=== PATIENT | female | born 1990 | race Hispanic/Latino ===

== ENCOUNTER 2019-03-11 20:07 | Emergency (ER) | payer OTHER ==
[~2019-03-11] VITALS: Ht 154.9 cm; Wt 72.6 kg
--- OUTSIDE RECORDS SUMMARY | 2019-03-11 20:09 | XMS REPORT | Continuity of Care Document ---
Author Author [facility] Address Unknown Phone Unavailable Care Team Providers Care Night Filler Name Role Phone [address] Information [employer] Unavailable Unavailable Problems Problem Status Onset Date Classification Date Reported Comments Source BLOATING R14.0, K59.00 Active 01/29/2016 [facility] BLOATING Active 01/29/2016 [facility] ABDOMINAL DISTENSION (GASEOUS) Active [facility] CONSTIPATION, UNSPECIFIED Active [facility] Medications No Data Provided for This Section Allergies, Adverse Reactions, Alerts No Known Medication Allergies Immunizations No Data Provided for This Section Results No Data Provided for This Section Pathology Reports No Data Provided for This Section Diagnostic Reports Report Value Date Source Abdomen complete US Patient Name: CEDRIC RUTH : 1990; Age: 25 years y/o Female MR: [id number] Study: Abdomen complete US 02/15/2016 10:48 AM CDT Ordering Physician: Alicia Mattson MD Clinical Indication: R14.0 Abdominal distension (gaseous); Comparison: None. TECHNIQUE: Grayscale and limited color sonographic evaluation of the abdomen was performed with standard technique. FINDINGS: LIVER: The visualized liver shows normal contour, size, and morphology with normal parenchymal echo texture. BILE DUCTS: The intrahepatic duct is not dilated. The common bile duct measuring 4.0 mm. GALLBLADDER: There are no gallstones, gallbladder sludge, pericholecystic fluid or wall thickening. PANCREAS: The pancreas is not well visualized.. SPLEEN: The spleen is unremarkable and measures 9.9 cm x 4.2 cm x 5.8 cm. KIDNEY: The right kidney measures 8.1 cm x 3.4 cm x 4.3 cm. The left kidney measures 11.0 cm x 5.8 cm x 5.5 cm. There is normal renal contour and morphology, with normal parenchymal echotexture. There is no hydronephrosis. AORTA AND INFERIOR VENA CAVA: Visualized portions appear unremarkable. ASCITES: There is no right abdominal ascites. IMPRESSION: 1. No definite gallstones. SL: [id number] 02/15/2016 [facility] Consultation Notes No Data Provided for This Section Discharge Summaries No Data Provided for This Section History and Physicals No Data Provided for This Section Vital Signs No Data Provided for This Section Encounters Location Location Details Encounter Type Encounter Number Reason For Visit Attending Provider ADM Date DC Date Status Source [facility] Outpatient [id number] Alicia Twila 02/15/2016 02/16/2016 [facility] Procedures No Data Provided for This Section Assessment and Plan No Data Provided for This Section Plan of Care No Data Provided for This Section Social History Social History Date Source No data available for this section 02/16/2016 [facility] Family History No Data Provided for This Section Advance Directives No Data Provided for This Section Functional Status No Data Provided for This Section
--- OUTSIDE RECORDS SUMMARY | 2019-03-11 20:09 | XMS REPORT | Summary of Care ---
Author Author [facility] Organization [facility] Address Unknown Phone Unavailable Encounter HQ Encntr_alias(FIN) [id number] Date(s): 02/15/16 - 02/15/16 [facility] [address] [place] [address]- [phone] Discharge Disposition: Home or Self Care Attending Physician: Alicia Mattson MD Admitting Physician: Alicia Mattson MD Referring Physician: Alicia Mattson MD Vital Signs No data available for this section Problem List No data available for this section Allergies, Adverse Reactions, Alerts Substance Reaction Severity Status NKDA Active Medications No data available for this section Results No data available for this section Immunizations No data available for this section Procedures No data available for this section Social History No data available for this section Assessment and Plan No data available for this section
--- OUTSIDE RECORDS SUMMARY | 2019-03-11 20:10 | XMS REPORT ---
Author [facility] Address Unknown Phone Unavailable Care Team Providers Care Real Estate Loan Officer Name Role Phone Unavailable Unavailable Payers Payer Name Policy Type Policy Number Effective Date Expiration Date Problems This patient has no known problems. Allergies, Adverse Reactions, Alerts Allergy Name Allergy Type Status Severity Reaction(s) Onset Date Inactive Date Treating Clinician Comments No Known Allergies DA Active U 2018-07-25 00:00:00 No Known Allergies DA Active U 2017-02-12 00:00:00 Medications This patient has no known medications. Results Test Description Test Time Test Comments Text Results Atomic Results Result Comments URINALYSIS COMPLETE 2019-03-09 20:16:00 UA COLOR (test code=COLU) RED YELLOW UA APPEARANCE (test code=APPU) CLOUDY CLEAR UA GLUCOSE DIPSTICK (test code=DGLUU) norm mg/dL NEGATIVE UA BILIRUBIN DIPSTICK (test code=BILU) NEGATIVE mg/dL NEGATIVE UA KETONE DIPSTICK (test code=KETU) neg mg/dL NEGATIVE UA SPECIFIC GRAVITY (test code=SGU) 1.020 1.001-1.035 UA BLOOD DIPSTICK (test code=PAPO) 250 (4+) Raman/uL NEGATIVE UA PH DIPSTICK (test code=ROXANA) 5.0 5.0-8.0 UA PROTEIN DIPSTICK (test code=PROU) 100 (2+) mg/dL Neg-15 UA UROBILINIOGEN DIPSTICK (test code=URO) 1 mg/dL 0.0-0.2 UA NITRITE DIPSTICK (test code=JENELLE) NEGATIVE NEGATIVE UA LEUKOCYTE ESTERASE DIPSTICK (test code=LEUU) 100 Elizabeth/uL (1+) uL NEGATIVE UA WBC (test code=WBCU) 11-20 per HPF 0-5 UA RBC (test code=RBCU) TNTC per HPF 0-5 UA EPITHELIAL CELLS (test code=EPIU) Few (2-5/hpf) per HPF Few UA BACTERIA (test code=BACU) FEW per HPF NONE Urine Source? Clean CatchUR HCG [id number] 20:16:00* Test Item Value Reference Range Comments UR HCG QUAL (test code=HCGQLU) NEGATIVE This HCGQL test is NOT applicable for MALE patients.Check with nurse about probable order error.If Tumor Marker Test needed, nurse should order test "HCGTU"(Test #[id number]) Urine Source? Clean CatchMONO [id number] 22:47:00* Test Item Value Reference Range Comments MONO SCREEN (test code=MONO) NEGATIVE NEGATIVE - XR CHEST 1 [id number] 22:36:00 FAX: Margi Hendricks MD [place]: B St: REG FAX: Namita Miller Name: CEDRIC RUTH [facility] : 1990 Age/S: 28/F [address] Unit #: [id number] Loc: [place], [place] [address] Phys: Namita Miller NP Acct: [id number] Dis Date: Status: REG ER PHONE #: [phone] Exam Date: 02/09/20192231 FAX #: [phone] Reason: COUGH EXAMS: CPT CODE: [id number] XR CHEST 1 V [id number] REASON FOR EXAM: COUGH Exam Order Date: 02/09/2019 10:06 PM Ordering Ruben: Namita Miller NP PROCEDURE: - XR CHEST 1 V COMPARISON: 2 view chest x-ray February 08, 2019 FINDINGS: The lungs are clear. There is no pleural effusion or pneumothorax. Pulmonary vascularity is within normal limits. Cardiomediastinal silhouette is normal in size for technique. The mediastinal contours are within normal limits. Musculoskeletal structures are within normal limits. The visualized upper abdomen is within normal limits. IMPRESSION: No acute c ardiopulmonary process. Electronically Signed by Curt Springer MD on 0 02/09/2019 at 2236 Reported and signed by: Curt Springer MD CC: Margi Zavala MD; Namita Miller NP Techn ologist: OSMEL HAM Trnidrd Date/Herrera e/By: 02/09/2019 (2235) : By: [email or web address] Orig Print D/T: S: 02/09/2019 (4387) PAGE 1 Signed Report - XR CHEST 2 [id number] 08:34:00 Name: CEDRIC RUTH [facility] : 1990 Age/S:28 /F [address] [facility] Unit#:[id number] Loc: [place] [address] Phys: Derek Wyatt MD Dis Date: PHONE #: [phone] Status: REG ER FAX #: [phone] Exam Date: 02/08/2019 Reason: cough EXAMS: CPT CODE: [id number] XR CHEST 2 V [id number] HISTORY: Cough. COMPARISON: May 12, 2018. AP and lateral view of the chest: No acute infiltrates, effusion or congestion. Cardiac and the mediastinal silhouette are normal. IMPRESSION: No acute infiltrates, effusion or congestion. at 0834 Reported and signed by: Luca Peters M.D. CC: Derek Wyatt MD Technologist: Lizbet Quick RT(R)(CT) Trnscrpt Data: 02/08/2019 (0834) [email or web address] Orig Print D/T: S: 02/08/2019 (0838) PAGE 1 Signed Report
[2019-03-11] MEDS ORDERED: LIDOCAINE 5% PATCH TP ONE (20:30)
[2019-03-11] MEDS ORDERED: KETOROLAC TROMETHAMINE 60 MG/2 ML VIAL IM ONE (20:30)
[2019-03-11] MEDS ORDERED: DEXAMETHASONE SOD PHOS 10 MG/1 ML VIAL IM ONE (20:30)
[2019-03-11] MEDS ORDERED: CYCLOBENZAPRINE HCL 10 MG TAB PO ONE (20:30)
[2019-03-11] MEDS ORDERED: HYDROCODONE/APAP 10MG-325MG TAB PO ONE (20:30)
[2019-03-11 21:27] VITALS: BP 123/76
== END 2019-03-11 21:32 | disposition home or self-care (01) ==
LOC: ER 20:07
DX: S39.012A Strain of muscle, fascia and tendon of lower back, initial encounter (principal); X50.0XXA Overexertion from strenuous movement or load, initial encounter; Y93.89 Activity, other specified; Y92.69 Other specified industrial and construction area as the place of occurrence of the external cause; Y99.0 Civilian activity done for income or pay
CPT/HCPCS: 96372; 99283; J1100; J1885

== ENCOUNTER 2019-06-16 20:37 | Emergency (ER) | payer OTHER ==
[~2019-06-16] VITALS: Ht 154.9 cm; Wt 74.8 kg
[2019-06-16] MEDS ORDERED: IBUPROFEN 600 MG TAB PO ONE (21:16)
[2019-06-16] MEDS ORDERED: IBUPROFEN 600 MG TAB ONE (21:27)
[2019-06-16] MEDS ORDERED: ACETAMINOPHEN 325 MG TAB PO ONE (21:30)
[2019-06-16 21:32] LABS: STREPTOCOCCUS GRP A ANTIGEN NEGATIVE (NEGATIVE)
[2019-06-16 21:46] LABS: INFLUENZAE A&B ANTIGEN (RAPID) NEGATIVE (NEGATIVE)
--- NOTE | 2019-06-16 22:21 | Diagnostic Imaging Report ---
EXAMINATION: CHEST 2 VIEWS INDICATION: Cough. COMPARISON: None FINDINGS: TUBES and LINES: None. LUNGS: Low lung volumes. There is no evidence of pneumonia or pulmonary edema. PLEURA: No pleural effusion or pneumothorax. HEART AND MEDIASTINUM: The cardiomediastinal silhouette is unremarkable. BONES AND SOFT TISSUES: No acute osseous abnormality. UPPER ABDOMEN: No free air under the diaphragm. IMPRESSION: No acute radiographic abnormality. Signed by: Dr. Amalia Castro MD on 06/16/2019 10:18 PM
== END 2019-06-16 23:32 | disposition home or self-care (01) ==
LOC: ER 20:37
DX: J06.9 Acute upper respiratory infection, unspecified (principal); R50.9 Fever, unspecified
CPT/HCPCS: 71046; 83518; 87070; 87400; 99283

== ENCOUNTER 2020-06-11 17:00 | Emergency (ER) | payer OTHER ==
[~2020-06-11] VITALS: Ht 160 cm; Wt 74.8 kg
--- OUTSIDE RECORDS SUMMARY | 2020-06-11 18:28 | XMS REPORT | Continuity of Care Document ---
Author Author [facility] t Organization [facility] Address [address] [place] [address] Phone Unavailable Care Team Providers Care Biopharmaceutical Rep Name Role Phone KENDY RODRIGUEZ PCP SIOBHAN SAMAYOA, LOUISA Attphys Unavailable PHIL KNIGHT Attphys Unavailable Leia Mattson Attphys Leia Mattson Admphys Payers Payer Name Policy Type Policy Number Effective Date Expiration Date Lulu mcgrath [facility] [id number] 2017 00:00: 00 [facility] Cigna o [id number] 2017 00:00:00 [facility] Problems Condition Name Condition Details Condition Category Status Onset Date Resolution Date Last Treatment Date Treating Clinician Comments Source BLOATING R14.0, K59.00 BLOA SANAM R14.0, K59.00 Active 01/29/2016 [facility] Diagnosis Active 2016-01-29 00:00:00 2016[facility]02[facility]15 [facility]ING Active 01/29/2016 [facility] Diagnosis Active 2016-01-29 00:00:00 2016-02-07 12:01:00 [facility] Abdominal pain Problem Active C [facility] Nausea Problem Active [facility] Urinary tract infection Problem Active [facility] ABDOMINAL DISTENSION (GASEOUS) ABDOMINAL DISTENSION (GASEOUS) Active [facility] Diagnosis Active 2015 10:52:00 [facility] CONSTIPATION, UNSPECIFIED CONS TIPATION, UNSPECIFIED Active [facility] Diagnosis Active 2016-02-15 10:52:0 0 [facility] Allergies, Adverse Reactions, Alerts Allergy Name Allergy Type Status Severity Reaction(s) Onset Date Inacti ve Date Treating Clinician Comments Source No Known Allergies DA Active U 2018-07-25 00:00:00 [facility] No Known Allergies DA Active U 2017-02-12 00:00:00 [facility] Social History Social Habit Start Date Stop Date Quantity Comments Source Social History 2016-02-16 04:59:00 2016-02-16 04:59:00 [facility] Sex Assigned At 1990 00:00:00 1990 00:00:00 Female [facility] Medications This patient has no known medications. Vital Signs Vital Name Observation Time Observation Value Comments Source Body Temperature 2020-02-06 19:23:00 98.2 [degF] [facility] Weight 2020-02-06 17:24:00 165 [lb_av] [facility] BMI (Body Mass Index) 2020-02-06 17:24:00 31.2 kg/m2 [facility] Procedures Procedure Date / Time Performed Performing Clinician Martínez robison Computed tomography of abdomen and pelvis with contrast 00:00:00 [facility] X-ray of chest, two views 2019-06-16 00:00:00 PHIL MENJIVAR [facility] Plan of Care Planned Activity Planned Date Details Comments Source Instructions Abdominal Pain - Adult [facility] Instructions Hypokalemia [facility] Instructions Urinary Tract Infection - Women [facility] Encounters Start Date/Time End Date/Time Encounter Type Admission Type [facility] Care Department Encounter ID Source 2020-02-06 17:22:00 2020-02-06 19:35:00 Departed Emergency Room 1 LOUISA MCCANN MD [facility] [id number] [facility] 2019-06-16 19:37:00 2019-06-16 22:32:00 Departed Emergency Room 1 PHIL KNIGHT [facility] [id number] [facility] 2019-03-11 20:07:00 2019-03-11 21:32:00 Departed Emergency Room [facility] [id number] [facility] 2016-02-15 10:44:00 2016-02-15 23:59:00 Outpatient Alicia Mattson [facility] [id number] Results Test Description Test Time Test Comments Results Result Comments Source CT ABDOMEN/PELVIS W 2020-02-06 19:00:00 [facility] [address] [place] [address] Patient Name: CEDRIC RUTH MR #: [id number] : 1990 Age/Sex: 29/F Req #: [id number] Adm Physician: Ordered by: LOUISA MCCANN MD, MD Report #: [id number] Location: ER Room/Bed: Procedure: [id number] CT/CT ABDOMEN/PELVIS W Exam Date: 02/06/20 Exam Time: 1815 REPORT STATUS: Signed EXAM: CT Abdomen and Pelvis WITH contrast INDICATION: Right lower quadrant pain. Abdominal pain. COMPARISON: None. TECHNIQUE: Abdomen and pelvis were scanned utilizing a multidetector helical scanner from the lung base to the pubic symphysis after administration of IV contrast. Coronal and sagittal reformations were obtained. Routine protocol was performed. Scan was performed when during portal venous phase. IV CONTRAST: 100 mL of Isovue 370 ORAL CONTRAST: None COMPLICATIONS: None RADIATION DOSE: Total DLP: 505 mGy*cm Estimated effective dose: (DLP x 0.015 x size factor) mSv CTDIvol has been reviewed. It is below the limits set by the Radiation Protocol Committee (RPC). Dose modulation, iterative reconstruction, and/or weight based adjustment of the mA/kV was utilized to reduce the radiation dose to as low as reasonably achievable. FINDINGS: LINES and TUBES: None. LOWER THORAX: Unremarkable HEPATOBILIARY: No focal hepatic lesions. No biliary ductal dilation. GALLBLADDER: No radio-opaque stones or sludge. No wall thickening. SPLEEN: No splenomegaly. PANCREAS: No focal masses or ductal dilatation. ADRENALS: No adrenal nodules KIDNEYS/URETERS: Kidneys enhance symmetrically. No hydronephrosis. No cystic or solid mass lesions. No stones. GI TRACT: No abnormal distention, wall thickening, or evidence of bowel obstruction. Appendix is normal. The terminal ileum and appendix are located in the right mid central abdomen. This is best seen on coronal reformatted image 36 through 42. This is also seen on axial image 37 through 40. Minimal nonspecific inflammatory change in the adjacent right mid abdomen with several small lymph nodes. Findings could be due to enteritis. PELVIC ORGANS/BLADDER: Unremarkable. LYMPH NODES: No lymphadenopathy. VESSELS: Unremarkable. PERITONEUM / RETROPERITONEUM: No free air or fluid. BONES: Unremarkable. SOFT TISSUES: Unremarkable. IMPRESSION: Appendix is normal. The terminal ileum and appendix are located in the right mid central abdomen. This is best seen on coronal reformatted image 36 through 42. This is also seen on axial image 37 through 40. Minimal nonspecific inflammatory change in the adjacent right mid abdomen with several small lymph nodes. Findings could be due to enteritis. Signed by: Dr. Timothy Sampson M.D. on 02/06/2020 7:07 PM Dictated By: TIMOTHY SAMPSON MD, MD 06 Transcribed By: ROMAIN on 02/06/201906 COPY TO: LOUISA MCCANN Urine color determination 2020-02-06 17:34:00 Test Item Urine Color (test code = 5778-6) YELLOW YELLOW [facility] [id number] 17:34:00* Test Item Value Reference Range Interpretation Comments Urine Clarity (test code = 35809-4) SL CLOUDY CLEAR [facility] gravity of Urine by Test strip 2020-02-06 17:34:00* Test Item Value Reference Range Interpretation Comments Urine Specific [place] (test code = 5811-5) 1.025 1.010-1.02 5 [facility] pH measurement by automated test zpwzq8404-38-60 17:34:00* Test Item Value Reference Range Interpretation Comments Urine pH (test code = 48491-5) 7 5-7 [facility] leukocyte esterase detection by pyhhohow2783-48-60 17:34:00* Test Item Value Reference Range Interpretation Comments Urine Leukocyte Esterase (test code = 5799-2) TRACE NEGATIVE [facility] nitrite qzdfblxhm4328-08-89 17:34:00* Test Item Value Reference Range Interpretation Comments Urine Nitrite (test code = 18666-3) NEGATIVE NEGATIVE [facility] protein measurement by test strip (mass/volume)2020-02-06 17:34:00* Test Item Value Reference Range Interpretation Comments Urine Protein (test code = 5804-0) TRACE NEGATIVE [facility] glucose qsfkbbrqy7387-68-22 17:34:00* Test Item Value Reference Range Interpretation Comments Urine Glucose (UA) (test code = 2349-9) NEGATIVE NEGATIVE [facility] ketones detection by automated test ughhv6958-31-13 17:34:00* Test Item Value Reference Range Interpretation Comments Urine Ketones (test code = 45240-9) 1+ NEGATIVE [facility] urobilinogen measurement by test strip (mass/volume)2020-02-06 17:34:00* Test Item Value Reference Range Interpretation Comments Urine Urobilinogen (test code = 88910-2) 2 0.2-1 [facility] total bilirubin measurement (mass/volume)2020-02-06 17:34:00* Test Item Value Reference Range Interpretation Comments Urine Bilirubin (test code = 1978-6) SMALL NEGATIVE [facility] erythrocytes dgvftncrv0811-41-81 17:34:00* Test Item Value Reference Range Interpretation Comments Urine Blood (test code = 15529-0) SMALL NEGATIVE [facility] CenterAutomated urine sediment leukocyte count by microscopy (number/high power field)2020-02-06 17:34:00* Test Item Value Reference Range Interpretation Comments Urine WBC (test code = 5821-4) 0-5 0-5 [facility] CenterErythrocytes detection in urine sediment by light mtpcgsohar7889-11-73 17:34:00* Test Item Value Reference Range Interpretation Comments Urine RBC (test code = 84350-4) 0-5 0-5 [facility] CenterBacteria detection in urine sediment by light jknmkncyoi5355-00-87 17:34:00* Test Item Value Reference Range Interpretation Comments Urine Bacteria (test code = 09514-3) MODERATE NONE [facility] CenterEpithelial cells detection in urine sediment by light rplqvtbyjm7409-16-88 17:34:00* Test Item Value Reference Range Interpretation Comments Urine Epithelial Cells (test code = 35105-6) MANY NONE [facility] CenterUrine human chorionic gonadotropin (hCG) dhhqpmeib4770-61-96 17:34:00* Test Item Value Reference Range Interpretation Comments Urine Test (test code = 2106-3) NEGATIVE NEGATIVE [facility] CenterBlood leukocytes automated count (number/volume)2020-02-06 17:32:00* Test Item Value Reference Range Interpretation Comments White Blood Count (test code = 6690-2) 9.52 4.8-10.8 [facility] CenterBlood erythrocytes automated count (number/volume)2020-02-06 17:32:00* Test Item Value Reference Range Interpretation Comments Red Blood Count (test code = 789-8) 4.69 3.6-5.1 [facility] CenterBlood hemoglobin measurement (moles/volume)2020-02-06 17:32:00* Test Item Value Reference Range Interpretation Comments Hemoglobin (test code = 62059-5) 10.2 12.0-16.0 [facility] CenterAutomated blood hematocrit (volume fraction)2020-02-06 17:32:00* Test Item Value Reference Range Interpretation Comments Hematocrit (test code = 4544-3) 34.0 34.2-44.1 [facility] CenterAutomated erythrocyte mean corpuscular ffdddo1045-87-78 17:32:00* Test Item Value Reference Range Interpretation Comments Mean Corpuscular Volume (test code = 787-2) 72.5 81-99 [facility] CenterAutomated erythrocyte mean corpuscular hemoglobin (mass per erythrocyte)2020-02-06 17:32:00* Test Item Value Reference Range Interpretation Comments Mean Corpuscular Hemoglobin (test code = 785-6) 21.7 28-32 [facility] CenterAutomated erythrocyte mean corpuscular hemoglobin concentration measurement (mass/volume)2020-02-06 17:32:00* Test Item Value Reference Range Interpretation Comments Mean Corpuscular Hemoglobin Concent (test code = 786-4) 30.0 31-35 [facility] CenterRDW PeoSb-Aoj2696-00-21 17:32:00* Test Item Value Reference Range Interpretation Comments Red Cell Distribution Width (test code = 56030-9) 16.9 11.7 -14.4 [facility] CenterAutomated blood platelet count (count/volume)2020-02-06 17:32:00* Test Item Value Reference Range Interpretation Comments Platelet Count (test code = 777-3) 468 140-360 [facility] CenterAutomated blood segmented neutrophil count as percentage of total lfgahdfpzq7782-42-33 17:32:00* Test Item Value Reference Range Interpretation Comments Neutrophils (%) (Auto) (test code = 44391-3) 67.6 38.7-80.0 [facility] CenterAutomated blood lymphocyte count as percentage ot total ptypqdsvlr1700-92-54 17:32:00* Test Item Value Reference Range Interpretation Comments Lymphocytes (%) (Auto) (test code = 736-9) 25.5 18.0-39.1 [facility] CenterAutomated blood monocyte count as percentage of total szfgnfdtqu1269-04-75 17:32:00* Test Item Value Reference Range Interpretation Comments Monocytes (%) (Auto) (test code = 5905-5) 4.6 4.4-11.3 [facility] CenterAutomated blood eosinophil count as percentage of total ubzqdownxl0266-26-25 17:32:00* Test Item Value Reference Range Interpretation Comments Eosinophils (%) (Auto) (test code = 713-8) 1.3 0.0-6.0 [facility] CenterAutomated blood basophil count as percentage of total qufsdnxpex0478-43-97 17:32:00* Test Item Value Reference Range Interpretation Comments Basophils (%) (Auto) (test code = 706-2) 0.5 0.0-1.0 [facility] CenterFluoroscopic procedure less than one hour txyfwrlw7490-35-05 17:32:00* Test Item Value Reference Range Interpretation Comments IM GRANULOCYTES % (test code = IM GRANULOCYTES %) 0.5 0.0- 1.0 [facility] CenterAutomated blood neutrophil count 2020-02-06 17:32:00* Test Item Value Reference Range Interpretation Comments Neutrophils # (Auto) (test code = 751-8) 6.4 2.1-6.9 [facility] CenterBlood lymphocytes count (number/volume) 2020-02-06 17:32:00* Test Item Value Reference Range Interpretation Comments Lymphocytes # (Auto) (test code = 97081-0) 2.4 1.0-3.2 [facility] CenterBlood monocytes automated count (number/volume)2020-02-06 17:32:00* Test Item Value Reference Range Interpretation Comments Monocytes # (Auto) (test code = 742-7) 0.4 0.2-0.8 [facility] CenterAutomated blood eosinophil count 2020-02-06 17:32:00* Test Item Value Reference Range Interpretation Comments Eosinophils # (Auto) (test code = 711-2) 0.1 0.0-0.4 [facility] CenterAutomated blood basophil count (count/volume)2020-02-06 17:32:00* Test Item Value Reference Range Interpretation Comments Basophils # (Auto) (test code = 704-7) 0.1 0.0-0.1 [facility] CenterFluoroscopic procedure less than one hour shvtvezm2820-37-76 17:32:00* Test Item Value Reference Range Interpretation Comments Absolute Immature Granulocyte (auto (edward t code = Absolute Immature Granulocyte (auto) 0.05 0-0.1 [facility]um or plasma sodium measurement (moles/volume)2020-02-06 17:32:00* Test Item Value Reference Range Interpretation Comments Sodium Level (test code = 2951-2) 140 136-145 [facility]ervilleerum or plasma potassium measurement (moles/volume)2020-02-06 17:32:00* Test Item Value Reference Range Interpretation Comments Potassium Level (test code = 2823-3) 3.4 3.5-5.1 [facility]ervilleerum or plasma chloride measurement (moles/volume)2020-02-06 17:32:00* Test Item Value Reference Range Interpretation Comments Chloride Level (test code = 2075-0) 106 98-107 [facility]ervilleerum or plasma carbon dioxide, total measurement (moles/volume)2020-02-06 17:32:00* Test Item Value Reference Range Interpretation Comments Carbon Dioxide Level (test code = 2028-9) 24 22-29 [facility]ervilleerum or plasma anion hxx0044-85-13 17:32:00* Test Item Value Reference Range Interpretation Comments Anion Gap (test code = 52504-4) 13.4 8-16 [facility]ervilleerum or plasma urea nitrogen measurement (mass/volume)2020-02-06 17:32:00* Test Item Value Reference Range Interpretation Comments Blood Urea Nitrogen (test code = 3094-0) 7 7-26 [facility]ervilleerum or plasma creatinine measurement (mass/volume)2020-02-06 17:32:00* Test Item Value Reference Range Interpretation Comments Creatinine (test code = 2160-0) 0.68 0.57-1.11 [facility]ervilleerum or plasma urea nitrogen/creatinine mass fnrpl5635-74-76 17:32:00* Test Item Value Reference Range Interpretation Comments BUN/Creatinine Ratio (test code = 3097-3) 10 6-25 [facility] CenterEstimated glomerular filtration rate (GFR) attpcjuwaqslf1101-80-42 17:32:00* Test Item Value Reference Range Interpretation Comments Estimat Glomerular Filtration Rate (test code = 933976938) > 60 >60 Ranges were taken from the National Kidney Disease Education Program and the [facility] Kidney Foundation literature.Reference ranges:60 or greater: Egjizr52-26 ( for 3 consecutive months): Chronic kidney disease 15 or less: Kidney failureUnited Memorial Medical CenterGlucose zwkizlacnnf2641-87-80 17:32:00* Test Item Value Reference Range Interpretation Comments Glucose Level (test code = JZT2530) 88 74-118 [facility]ervilleerum or plasma calcium measurement (mass/volume)2020-02-06 17:32:00* Test Item Value Reference Range Interpretation Comments Calcium Level (test code = 10526-0) 9.2 8.4-10.2 [facility]ervilleerum or plasma total bilirubin measurement (mass/volume)2020-02-06 17:32:00* Test Item Value Reference Range Interpretation Comments Total Bilirubin (test code = 1975-2) 0.5 0.2-1.2 [facility] CenterFluoroscopic procedure less than one hour qrxakqse3616-27-17 17:32:00* Test Item Value Reference Range Interpretation Comments Aspartate Amino Transf (AST/SGOT) (test code = Aspartate Amino Transf (AST/SGOT)) 15 5-34 [facility]ervilleerum or plasma alanine aminotransferase measurement (enzymatic activity/volume)2020-02-06 17:32:00* Test Item Value Reference Range Interpretation Comments Alanine Aminotransferase (ALT/SGPT) (test code = 1742-6) 12 0-55 [facility]ervilleerum or plasma protein measurement (mass/volume)2020-02-06 17:32:00* Test Item Value Reference Range Interpretation Comments Total Protein (test code = 2885-2) 7.8 6.5-8.1 [facility]ervilleerum or plasma albumin measurement (mass/volume)2020-02-06 17:32:00* Test Item Value Reference Range Interpretation Comments Albumin (test code = 1751-7) 4.3 3.5-5.0 [facility] CenterPlasma globulin measurement (mass/volume) 2020-02-06 17:32:00* Test Item Value Reference Range Interpretation Comments Globulin (test code = 27501-6) 3.5 2.3-3.5 [facility]ervilleerum or plasma albumin/globulin mass uayhi0585-42-17 17:32:00* Test Item Value Reference Range Interpretation Comments Albumin/Globulin Ratio (test code = 1759-0) 1.2 0.8-2.0 [facility]ervilleerum or plasma alkaline phosphatase measurement (enzymatic activity/volume)2020-02-06 17:32:00* Test Item Value Reference Range Interpretation Comments Alkaline Phosphatase (test code = 6768-6) 73 40-150 [facility]ervilleerum or plasma creatine kinase measurement (enzymatic activity/volume)2020-02-06 17:32:00* Test Item Value Reference Range Interpretation Comments Creatine Kinase (test code = 2157-6) 63 29-168 [facility]ervilleerum or plasma creatine kinase MB measurement (mass/volume)2020-02-06 17:32:00* Test Item Value Reference Range Interpretation Comments Creatine Kinase MB (test code = 81876-7) 0.40 0-5.0 [facility] CenterTroponin I measurement by highly sensitive enzyme cersmjgeglo3730-57-39 17:32:00* Test Item Value Reference Range Interpretation Comments Troponin I (test code = 63916-8) 0.014 0-0.300 [facility]erville[facility]um or plasma lipase measurement (enzymatic activity/volume)2020-02-06 17:32:00* Test Item Value Reference Range Interpretation Comments Lipase (test code = 3040-3) 28 8-78 [facility] CenterCHEST 2 KIDLS9081-10-57 22:17:00 [facility] [address] [place] [address] Patient Name: CEDRIC RUTH MR #: [id number] : 1990 Age/Sex: 29/F Req #: [id number] Adm Physician: Ordered by: PHIL MENJIVAR NP Report #: [id number] Location: ER Room/Bed: Procedure: [id number] DX/C HEST 2 VIEWS Exam Date: 06/16/19 Exam Time: 2128 REPORT STATUS: Signed EXAMINATION: CHEST 2 VIEWS INDICATION: Cough. COMPARISON: None FIN DINGS: TUBES and LINES: None. LUNGS: Low lung volumes. There is no evide nce of pneumonia or pulmonary edema. PLEURA: No pleural effusion or pneumo thorax. HEART AND MEDIASTINUM: The cardiomediastinal silhouette is unrema rkable. BONES AND SOFT TISSUES: No acute osseous abnormality. UPP ER ABDOMEN: No free air under the diaphragm. IMPRESSION: No acute ra diographic abnormality. Signed by: Dr. Mercedez Joshi MD on 06/16/2019 10:18 P M Dictated By: MERCEDEZ JOSHI MD 17 Transcribed By: ROMAIN on 06/16/192217 COPY TO: Tiera MENJIVAR [employer] TECHNICIAN Influenza Virus Types A,B Pfekewk1232-52-86 21:46:00* Test Item Value Reference Range Interpretation Comments Influenza Virus Types A,B Antigen (test code = 08536-1) NEGATIVE NEGATIVE [facility] CenterGroup A Streptococcus Jhqfmm2047-03-12 21:32:00* Test Item Value Reference Range Interpretation Comments Group A Streptococcus Screen (test code = 00529-0) NEGATIVE NEG ATIVE [facility] CenterInfluenza virus A and B antigen identification by lrzwzedmvfscvyzjdz2036-28-77 20:14:00* Test Item Value Reference Range Interpretation Comments Influenza Virus Types A,B Antigen (test code = 44293-8) NEGATIVE NEGATIVE [facility] Pflugervilletreptococcus pyogenes antigen detection in rguctx0681-90-51 20:14:00* Test Item Value Reference Range Interpretation Comments Group A Streptococcus Screen (test code = 66603-2) NEGATIVE NEG ATIVE [facility] CenterURINALYSIS TOGSMQET6292-67-41 20:16:00* Test Item Value Reference Range Interpretation Comments UA COLOR (test code = COLU) RED YELLOW A UA APPEARANCE (test code = APPU) CLOUDY CLEAR A UA GLUCOSE DIPSTICK (test code = DGLUU) norm mg/dL NEGATIVE UA BILIRUBIN DIPSTICK (test code = BILU) NEGATIVE mg/dL NEGATIVE UA KETONE DIPSTICK (test code = KETU) neg mg/dL NEGATIVE UA SPECIFIC GRAVITY (test code = SGU) 1.020 1.001-1.035 UA BLOOD DIPSTICK (test code = PAPO) 250 (4+) Raman/uL NEGATIVE A UA PH DIPSTICK (test code = ROXANA) 5.0 5.0-8.0 UA PROTEIN DIPSTICK (test code = PROU) 100 (2+) mg/dL Neg-15 A UA UROBILINIOGEN DIPSTICK (test code = URO) 1 mg/dL 0.0-0.2 A UA NITRITE DIPSTICK (test code = JENELLE) NEGATIVE NEGATIVE UA LEUKOCYTE ESTERASE DIPSTICK (test code = LEUU) 100 Elizabeth/uL (1+) u L NEGATIVE A UA WBC (test code = WBCU) 11-20 per HPF 0-5 A UA RBC (test code = RBCU) TNTC per HPF 0-5 A UA EPITHELIAL CELLS (test code = EPIU) Few (2-5/hpf) per HPF Few UA BACTERIA (test code = BACU) FEW per HPF NONE Urine Source? Clean CatchUR HCG QNGY9288-74-73 20:16:00* Test Item Value Reference Range Interpretation Comments UR HCG QUAL (test code = HCGQLU) NEGATIVE This HCGQL test is NOT applicable for MALE patients.Check with nurse about probable order error.If Tumor Marker Test needed, nurse should order test "HCGTU"(Test #550.38473) Urine Source? Clean CatchMONO PMGWDH5365-77-98 22:47:00* Test Item Value Reference Range Interpretation Comments MONO SCREEN (test code = MONO) NEGATIVE NEGATIVE - XR CHEST 1 [id number] 22:36:00 FAX: Kendy Hendricks MD [place]: St: [facility] FAX: Namita Miller Name: CEDRIC RUTH [facility] : 1990 Age/S: 28/F [address] [facility]: [id number] Loc: [place] [address] Phys: Namita Miller NP Acct: [id number] Dis Date: Status: REG ER PHONE #: [phone] Exam Date: 02/09/20192231 FAX #: [phone] Reason: COUGH EXAMS: CPT CODE: [id number] XR CHEST 1 V [id number] REASON FOR EXAM: COUGH Exam Order Date: 02/09/2019 10:06 PM Ordering MHazel: Namita Miller NP PROCEDURE: - XR CHEST [...] and signed by: Curt Springer MD CC: Kendy Rodriguez MD; Namita Miller NP Techn ologist: OSMEL HAM Trnscrd Date/Herrera e/By: 02/09/2019 (2755) : By: [email or web address] Orig Print D/T: S: 02/09/2019 (3902) PAGE 1 Signed Report - XR CHEST 2 [id number] 08:34:00 Name: CEDRIC RUTH [facility] : 1990 Age/S:28 /F [address] [facility] Unit#:[id number] Loc: [place] [address] Phys: Derek Wyatt MD Dis Date: PHONE #: [phone] Status: REG ER FAX #: [phone] Exam Date: 02/08/2019 Reason: cough EXAMS: CPT CODE: [id number] XR CHEST 2 V 78069 HISTORY: Cough. COMPARISON: May 12, 2018. AP and lateral view of the chest: No acute infiltrates, effusion or congestion. Cardiac and the mediastinal silhouette are normal. IMPRESSION: No acute infiltrates, effusion or congestion. at 0834 Reported and signed by: Luca Peters M.D. CC: Derek Wyatt MD Technologist: Lizbet Quick RT(R)(CT) Trnscrpt Data: 02/08/2019 (0834) [email or web address] Orig Print D/T: S: 02/08/2019 (0809) PAGE 1 Signed Report
--- OUTSIDE RECORDS SUMMARY | 2020-06-11 18:28 | XMS REPORT | Continuity of Care Document ---
Author Author Melania Lazo Wisam CEDRIC Saini Organization [employer] Address Unknown Phone Unavailable Care Team Providers [employer] Att[employer] Name Role Phone CausePlay Information [place] Unavailable Un available Problems Problem Status Onset Date Classification Date Reported Comments Source BLOATING R14.0, K59.00 Active 01/29/2016 [facility] BLOATING Active 01/29/2016 [facility] ABDOMINAL DISTENSION (GASEOUS) Active [facility] CONSTIPATION, UNSPECIFIED Acti ve [facility] Medications No Data Provided for This Section Allergies, Adverse Reactions, Alerts No Known Medication Allergies Immunizations No Data Provided for This Section Results No Data Provided for This Section Pathology Reports No Data Provided for This Section Diagnostic Reports Report Value Date Source Abdomen complete US Patient Na me: CEDRIC RUTH : 1990; Age: 25 years y/o Female MR: [id number] Study: Abdomen complete US 02/15/2016 10:48 AM [...] ascites. IMPRESSION: 1. No definite gallstones. SL: [id number] 02/15/2016 [facility] Consultation Notes No Data Provided for This Section Discharge Summaries No Data Provided for This Section History and Physicals No Data Provided for This Section Vital Signs No Data Provided for This Section Encounters Location Location Details Encounter Type Encounter Number Reason For Visit Attending Provider ADM Date DC Date Status Source [facility] [id number] Alicia Mattson 02/15/2016 02/16/2016 [facility] Procedures No Data Provided for This Section Assessment and Plan No Data Provided for This Section Plan of Care No Data Provided for This Section Social History Social History Date Source No data available for this section 02/16/2016 [facility] Family History No Data Provided for This Section Advance Directives No Data Provided for This Section Functional Status No Data Provided for This Section
--- NOTE | 2020-06-11 18:34 | Emergency Department Note ---
History of Present Illnes History of Present Illness Chief Complaint: General Medicine Complaints History of Present Illness This is a 30 year old female advised by her PCP to come to the nearest ED for evaluation of left breast pain, onset Wednesday, pt states that she was doing a breast self-exam when she felt a lump under her left breast, pt describes the pain as burning and "something wants to come out from my left breast", family hx of cancer . Historian: Patient Onset (how long ago): day(s) (2) Location: LEFT BREAST Quality: LUMP IN BREAST WITH TENDERNESS Radiation: Reports non-radiation Severity: mild Onset quality: sudden Duration (how long): day(s) (2) Timing of current episode: constant Chronicity: new Context: Denies recent illness Relieving factors: none Exacerbating factors: none Associated symptoms: Reports denies other symptoms Past Medical/Family History Physician Review I have reviewed the patient's past medical and family history. Any updates have been documented here. Past Medical History Recent Fever: No Clinical Suspicion of Infectio: No New/Unexplained Change in Ment: No Past Medical History: None Other Medical History: svt Past Surgical History: None Social History Smoking Cessation: Never Smoker Alcohol Use: None Any Illegal Drug Use: No Family History Other family history BREAST CANCER Other Last Tetanus: UTD Review of Systems Review of Systems Constitutional: Reports no symptoms EENTM: Reports no symptoms Cardiovascular: Reports no symptoms Respiratory: Reports no symptoms Gastrointestinal: Reports no symptoms Genitourinary: Reports no symptoms Musculoskeletal: Reports no symptoms Integumentary: Reports no symptoms Neurological: Reports no symptoms Psychological: Reports no symptoms Endocrine: Reports no symptoms Hematological/Lymphatic: Reports no symptoms Physical Exam Related Data Allergies: Coded Allergies: No Known Allergies (Unverified , 06/16/19) Triage Vital Signs Vital Signs Date Time Temp Pulse Resp B/P (MAP) Pulse Ox O2 Delivery O2 Flow Rate FiO2 06/11/20 17:06 Room Air Vital signs reviewed: Yes Physical Exam CONSTITUTIONAL Constitutional: Present well-developed, Present well-nourished HENT HENT: Present normocephalic, Present atraumatic, Present oropharynx clear/moist, Present nose normal HENT L/R: Present left ext ear normal, Present right ext ear normal EYES Eyes: Reports PERRL, Reports conjunctivae normal NECK Neck: Present ROM normal PULMONARY Pulmonary: Present effort normal, Present breath sounds normal CARDIOVASCULAR Cardiovascular: Present regular rhythm, Present heart sounds normal, Present capillary refill normal, Present normal rate GASTROINTESTINAL Abdominal: Present soft, Present nontender, Present bowel sounds normal GENITOURINARY Genitourinary: Present exam deferred SKIN Skin: Present warm, Present dry MUSCULOSKELETAL Musculoskeletal: Present ROM normal NEUROLOGICAL Neurological: Present alert, Present oriented x 3, Present no gross motor or sensory deficits PSYCHOLOGICAL Psychological: Present mood/affect normal, Present judgement normal Exam - additional comments BREAST EXAM PT WITH 2 SMALL PALPABLE LUMPS AT 6 OCLOCK POSITION OF LEFT BREAST, NO ERYTHEMA, NO SIGN OF INFECTION Assessment & Plan Medical Decision Making [facility] PT WITH 2 LUMPS IN LEFT BREAST INSTRUCTED TO FOLLOW UP WITH PCP TO ARRANGE A MAMMOGRAM Assessment & Plan Final Impression: (1) Lump in female breast Depart Disposition: HOME, SELF-CARE Last Vital Signs Date Time Temp Pulse Resp B/P (MAP) Pulse Ox O2 Delivery O2 Flow Rate FiO2 06/11/20 17:06 Room Air BLANCA CORDOVA MD Jun 11, 2020 18:34
[2020-06-11 18:57] VITALS: BP 124/63
== END 2020-06-11 18:59 | disposition home or self-care (01) ==
LOC: ER 18:20
DX: N63.24 Unspecified lump in the left breast, lower inner quadrant (principal); Z80.3 Family history of malignant neoplasm of breast
CPT/HCPCS: 99283

== ENCOUNTER 2020-08-04 12:48 | Emergency (ER) | payer OTHER ==
[~2020-08-04] VITALS: Ht 160 cm; Wt 74.8 kg
[2020-08-04 15:33] VITALS: BP 115/78
== END 2020-08-04 15:33 | disposition home or self-care (01) ==
LOC: ER 13:19
DX: G51.0 Bell's palsy (principal)
CPT/HCPCS: 70450; 99283

== ENCOUNTER 2021-01-28 11:56 | Emergency (ER) | payer OTHER ==
[~2021-01-28] VITALS: Ht 160 cm; Wt 74.8 kg
[2021-01-28 12:58] LABS: BASOPHILS # (AUTO) 0.1 (0.0-0.1); BASOPHILS % 0.7 % (0.0-1.0); EOSINOPHILS # (AUTO) 0.1 (0.0-0.4); EOSINOPHILS % 1.6 % (0.0-6.0); HEMATOCRIT 34.7 % (34.2-44.1); HEMOGLOBIN 10.5 g/dL (12.0-16.0); LYMPHOCYTES # (AUTO) 1.7 (1.0-3.2); MEAN CORPUSCULAR HEMOGLOBIN 21.3 pg (28-32); MEAN CORPUSCULAR HGB CONC 30.3 g/dL (31-35); MEAN CORPUSCULAR VOLUME 70.5 fL (81-99); MONOCYTES # (AUTO) 0.4 (0.2-0.8); MONOCYTES % 4.6 % (4.4-11.3); NEUTROPHILS % 72.7 % (38.7-80.0); PLATELET COUNT 471 x10e3/uL (140-360); RED BLOOD COUNT 4.92 x10e6/uL (3.6-5.1); RED CELL DISTRIBUTION WIDTH 17.2 % (11.7-14.4)
[2021-01-28 13:20] LABS: ALBUMIN/GLOBULIN RATIO 1.3 (0.8-2.0); ANION GAP 10.8 mmol/L (8-16); CALCIUM 8.6 mg/dL (8.4-10.2); CREATININE, SERUM 0.65 mg/dL (0.57-1.11); POTASSIUM 3.8 mmol/L (3.5-5.1)
[2021-01-28 15:57] VITALS: BP 120/62
== END 2021-01-28 16:00 | disposition home or self-care (01) ==
LOC: ER 12:33
DX: R53.1 Weakness (principal); R53.83 Other fatigue; D64.9 Anemia, unspecified
CPT/HCPCS: 36415; 80053; 81025; 85025; 86850; 86900; 99283

== ENCOUNTER 2023-05-30 15:01 | Emergency (ER) | payer BC, OTHER ==
[~2023-05-30] VITALS: Ht 154.9 cm; Wt 62.1 kg
[2023-05-30] MEDS ORDERED: ONDANSETRON HCL INJ 2MG/ML 2ML 2 MG/ML VIAL IV STA (15:42)
[2023-05-30] MEDS ORDERED: KETOROLAC TROMETHAMINE 30 MG/ML VIAL IV STA (15:42)
[2023-05-30] MEDS ORDERED: SODIUM CHLORIDE 0.9% 1000ML 1,000 ML IV ONE (15:45)
[2023-05-30] MEDS ORDERED: SODIUM CHLORIDE FLUSH 10 ML SYR IV PRN (15:45)
[2023-05-30 15:51] LABS: BASOPHILS # (AUTO) 0.1 (0.0-0.1); BASOPHILS % 0.6 % (0.0-1.0); EOSINOPHILS # (AUTO) 0.1 (0.0-0.4); EOSINOPHILS % 1.3 % (0.0-6.0); HEMATOCRIT 35.8 % (34.2-44.1); HEMOGLOBIN 11.2 g/dL (12.0-16.0); LYMPHOCYTES # (AUTO) 2.1 (1.0-3.2); LYMPHOCYTES % 27.1 % (18.0-39.1); MEAN CORPUSCULAR HEMOGLOBIN 24.1 pg (28-32); MEAN CORPUSCULAR HGB CONC 31.3 g/dL (31-35); MEAN CORPUSCULAR VOLUME 77.2 fL (81-99); MONOCYTES # (AUTO) 0.5 (0.2-0.8); MONOCYTES % 5.9 % (4.4-11.3); NEUTROPHILS # (AUTO) 5.1 (2.1-6.9); NEUTROPHILS % 64.7 % (38.7-80.0); PLATELET COUNT 402 x10e3/uL (140-360); RED BLOOD COUNT 4.64 x10e6/uL (3.6-5.1); RED CELL DISTRIBUTION WIDTH 14.6 % (11.7-14.4); WHITE BLOOD COUNT 7.91 x10e3/uL (4.8-10.8)
[2023-05-30 16:04] LABS: ALANINE AMINOTRANSFERASE 8 IU/L (0-55); ALBUMIN 4.1 g/dL (3.5-5.0); ALBUMIN/GLOBULIN RATIO 1.2 (0.8-2.0); ALKALINE PHOSPHATASE 61 IU/L (40-150); ANION GAP 11.7 mmol/L (8-16); BILIRUBIN,TOTAL 0.3 mg/dL (0.2-1.2); BLOOD UREA NITROGEN 11 mg/dL (7-26); BUN/CREATININE RATIO 13 (6-25); CALCIUM 8.8 mg/dL (8.4-10.2); CARBON DIOXIDE 22 mmol/L (22-29); CHLORIDE 107 mmol/L (98-107); CREATININE, SERUM 0.86 mg/dL (0.57-1.11); EST GLOMERULAR FILTRATION RATE 90 ML/MIN (>=60); GLUCOSE 102 mg/dL (74-118); POTASSIUM 3.7 mmol/L (3.5-5.1); SODIUM 137 mmol/L (136-145); TOTAL PROTEIN 7.4 g/dL (6.5-8.1)
[2023-05-30 16:16] LABS: TROPONIN I < 0.001 ng/mL (0-0.300)
[2023-05-30] MEDS ORDERED: IOPAMIDOL 370 MG/ML 100 ML INFUS..BTL INJ ONE (17:31)
[2023-05-30 19:05] VITALS: BP 110/61; PULSE 80; RESP 16; TEMP 99; O2SAT 100
== END 2023-05-30 19:08 | disposition home or self-care (01) ==
LOC: ER 15:28
DX: R00.2 Palpitations (principal); R07.89 Other chest pain; D64.9 Anemia, unspecified
CPT/HCPCS: 36415; 71045; 71260; 80053; 83880; 84484; 84702; 85025; 85379; 93005; 94760; 99284; J1885; J2405; J7030; Q9967

== ENCOUNTER 2024-06-13 21:34 | Emergency (ER) | payer BC ==
[~2024-06-13] VITALS: Ht 154.9 cm; Wt 61.2 kg
[2024-06-13] MEDS: IBUPROFEN 600 MG TAB PO STA (22:20)
[2024-06-13 23:16] VITALS: PULSE 82; RESP 17; TEMP 99
[2024-06-13 23:20] VITALS: BP 106/70; PULSE 82; RESP 17; TEMP 99; O2SAT 100
== END 2024-06-13 23:26 | disposition home or self-care (01) ==
LOC: ER 21:41
DX: S01.512A Laceration without foreign body of oral cavity, initial encounter (principal); S80.02XA Contusion of left knee, initial encounter; V00.831A Fall from motorized mobility scooter, initial encounter; Y92.89 Other specified places as the place of occurrence of the external cause; D64.9 Anemia, unspecified
CPT/HCPCS: 70110; 99283

== ENCOUNTER 2024-09-27 21:16 | Emergency (ER) | payer BC ==
[~2024-09-27] VITALS: Ht 152.4 cm; Wt 63.5 kg
[2024-09-27] MEDS: ACETAMINOPHEN 325 MG TAB PO STA (22:04)
[2024-09-27] MEDS: DEXAMETHASONE SOD PHOS 10 MG/1 ML VIAL IM STA (22:05)
[2024-09-27 22:11] LABS: BILIRUBIN,URINE NEGATIVE (NEGATIVE); CLARITY,URINE CLEAR (CLEAR); COLOR,URINE YELLOW (YELLOW); GLUCOSE, URINE NEGATIVE (NEGATIVE); KETONES,URINE NEGATIVE (NEGATIVE); LEUKOCYTE ESTERASE ,URINE NEGATIVE (NEGATIVE); NITRITE,URINE NEGATIVE (NEGATIVE); PH,URINE 6 (5 - 7); PROTEIN,URINE DIPSTICK NEGATIVE (NEGATIVE); URINE UROBILINOGEN 0.2 mg/dL (0.2 - 1)
[2024-09-27 22:22] LABS: BACTERIA,URINE MANY /HPF; EPITHELIAL CELLS,URINE MODERATE /LPF; RBC,URINE 0-5 /HPF (0-5)
[2024-09-27] MEDS: ONDANSETRON HCL 4 MG ORAL DISINTEGRATING TAB PO ONE (22:24)
[2024-09-27 22:29] LABS: PREGNANCY TEST, URINE NEGATIVE (NEGATIVE)
[2024-09-27] MEDS: KETOROLAC TROMETHAMINE 60 MG/2 ML VIAL IM STA (23:10)
[2024-09-27 23:16] LABS: CORONAVIRUS COVID-19 AG NEGATIVE (NEGATIVE); INFLUENZA A AG NEGATIVE (NEGATIVE); INFLUENZA B AG NEGATIVE (NEGATIVE); STREPTOCOCCUS GRP A ANTIGEN NEGATIVE (NEGATIVE)
[2024-09-27] MEDS ORDERED: VENTOLIN HFA18 GM INH (23:36)
[2024-09-27] MEDS ORDERED: PREDNISONE20 MG PO (23:36)
[2024-09-27] MEDS ORDERED: AZITHROMYCIN250 MG PO (23:36)
[2024-09-28 00:15] VITALS: PULSE 92; RESP 16; TEMP 98.9; O2SAT 100
[2024-09-28] MEDS ORDERED: ONDANSETRON ODT4 MG PO (00:35)
== END 2024-09-28 00:40 | disposition home or self-care (01) ==
LOC: ER 21:19
DX: R50.9 Fever, unspecified (principal); J06.9 Acute upper respiratory infection, unspecified; R11.2 Nausea with vomiting, unspecified; R51.9 Headache, unspecified; M79.18 Myalgia, other site; D64.9 Anemia, unspecified; Z11.52 Encounter for screening for COVID-19; R94.31 Abnormal electrocardiogram [ECG] [EKG]
CPT/HCPCS: 81001; 81025; 83518; 87070; 87428; 93005; 99283; J1100; J1885; Q0162

== ENCOUNTER 2024-11-12 18:24 | Emergency (ER) | payer BC ==
[~2024-11-12] VITALS: Ht 154.9 cm; Wt 63.5 kg
[~2024-11-12 18:24] MED LIST: AZITHROMYCIN250 MG PO; ONDANSETRON ODT4 MG PO; PREDNISONE20 MG PO; VENTOLIN HFA18 GM INH
[2024-11-12 18:30] VITALS: RESP 18; TEMP 98.9
[2024-11-12 19:02] LABS: BASOPHILS # (AUTO) 0.1 (0.0-0.1); BASOPHILS % 0.6 % (0.0-1.0); EOSINOPHILS # (AUTO) 0.1 (0.0-0.4); EOSINOPHILS % 1.4 % (0.0-6.0); HEMATOCRIT 32.2 % (34.2-44.1); HEMOGLOBIN 9.4 g/dL (12.0-16.0); LYMPHOCYTES # (AUTO) 1.7 (1.0-3.2); LYMPHOCYTES % 19.7 % (18.0-39.1); MEAN CORPUSCULAR HEMOGLOBIN 20.4 pg (28-32); MEAN CORPUSCULAR HGB CONC 29.2 g/dL (31-35); MEAN CORPUSCULAR VOLUME 69.8 fL (81-99); MONOCYTES # (AUTO) 0.6 (0.2-0.8); MONOCYTES % 6.4 % (4.4-11.3); NEUTROPHILS # (AUTO) 6.2 (2.1-6.9); NEUTROPHILS % 71.6 % (38.7-80.0); PLATELET COUNT 479 x10e3/uL (140-360); RED BLOOD COUNT 4.61 x10e6/uL (3.6-5.1); RED CELL DISTRIBUTION WIDTH 17.4 % (11.7-14.4); WHITE BLOOD COUNT 8.59 x10e3/uL (4.8-10.8)
[2024-11-12 19:11] LABS: ALBUMIN 3.7 g/dL (3.5-5.0); ALBUMIN/GLOBULIN RATIO 1.1 (0.8-2.0); ANION GAP 16.6 mmol/L (8-16); BILIRUBIN,TOTAL 0.3 mg/dL (0.2-1.2); CALCIUM 8.7 mg/dL (8.4-10.2); CREATININE, SERUM 0.71 mg/dL (0.57-1.11); POTASSIUM 3.6 mmol/L (3.5-5.1)
[2024-11-12 19:53] LABS: AMPHETAMINES SCREEN,URINE NEGATIVE (NEGATIVE); BENZODIAZEPINES SCREEN,URINE NEGATIVE (NEGATIVE); CANNABINOIDS SCREEN,URINE NEGATIVE (NEGATIVE); COCAINE SCREEN,URINE NEGATIVE (NEGATIVE); METHADONE SCREEN, URINE NEGATIVE (NEGATIVE); OPIATES SCREEN,URINE NEGATIVE (NEGATIVE); PHENCYCLIDINE SCREEN,URINE NEGATIVE (NEGATIVE)
[2024-11-12 19:55] LABS: CLARITY,URINE CLOUDY (CLEAR); COLOR,URINE YELLOW (YELLOW); GLUCOSE, URINE 1+ (NEGATIVE); LEUKOCYTE ESTERASE ,URINE NEGATIVE (NEGATIVE); NITRITE,URINE NEGATIVE (NEGATIVE); PH,URINE 6 (5 - 7); PROTEIN,URINE DIPSTICK 1+ (NEGATIVE)
[2024-11-12 19:56] LABS: BILIRUBIN,URINE NEGATIVE (NEGATIVE); KETONES,URINE TRACE (NEGATIVE); URINE UROBILINOGEN 1 mg/dL (0.2 - 1)
[2024-11-12 20:24] LABS: BACTERIA,URINE MANY /HPF; EPITHELIAL CELLS,URINE MODERATE /LPF; MUCUS,URINE MANY; RBC,URINE 21-50 /HPF (0-5)
[2024-11-12 20:25] LABS: YEAST,URINE MODERATE
[2024-11-12] MEDS: ACETAMINOPHEN 325 MG TAB PO ONE (21:07)
[2024-11-12 21:10] VITALS: PULSE 80
[2024-11-12] MEDS ORDERED: ONDANSETRON ODT4 MG SL (21:21)
[2024-11-12] MEDS ORDERED: FIORICET 50-301 EACH PO (21:21)
[2024-11-12] MEDS ORDERED: CEFDINIR300 MG PO (21:21)
[2024-11-12 21:37] VITALS: BP 111/75; O2SAT 99
== END 2024-11-12 21:41 | disposition home or self-care (01) ==
LOC: ER 18:43
DX: R51.9 Headache, unspecified (principal); R20.2 Paresthesia of skin; N39.0 Urinary tract infection, site not specified; R07.89 Other chest pain; R11.0 Nausea; D64.9 Anemia, unspecified; R94.31 Abnormal electrocardiogram [ECG] [EKG]
CPT/HCPCS: 36415; 70450; 71045; 80053; 80307; 81001; 84484; 84702; 85025; 93005; 99284

== ENCOUNTER 2025-05-03 08:37 | Emergency (ER) | payer BC ==
[~2025-05-03] VITALS: Ht 152.4 cm; Wt 63.5 kg
[~2025-05-03 08:37] MED LIST changes: +CEFDINIR300 MG PO; +FIORICET 50-301 EACH PO; +ONDANSETRON ODT4 MG SL
[2025-05-03 08:59] VITALS: PULSE 74; RESP 16; TEMP 98.4; O2SAT 99
[2025-05-03] MEDS: SODIUM CHLORIDE 0.9% 1000ML 1,000 ML IV SCH (09:30)
[2025-05-03] MEDS: DIPHENHYDRAMINE HCL 25 MG CAP PO ONE (09:30)
[2025-05-03] MEDS: KETOROLAC TROMETHAMINE 30 MG/ML VIAL IV STA (09:31)
[2025-05-03] MEDS: DEXAMETHASONE SOD PHOS 10 MG/1 ML VIAL IV ONE (09:33)
[2025-05-03] MEDS: METOCLOPRAMIDE HCL 10 MG/2ML VIAL IV ONE (09:36)
== END 2025-05-03 10:39 | disposition home or self-care (01) ==
LOC: ER 08:45
DX: R51.9 Headache, unspecified (principal); M79.602 Pain in left arm; R20.0 Anesthesia of skin; D64.9 Anemia, unspecified
CPT/HCPCS: 99283; J1100; J1885; J2765; J7030